=== PATIENT | male | born 1975 | race Caucasian/White ===

== ENCOUNTER 2020-11-02 08:47 | Outpatient (CLI) | payer MEDICARE, SELFPAY ==
--- NOTE | 2020-11-02 08:30 | XR_ITS ---
WS: [id number] XR KUB [id number] REASON FOR EXAM: Nuerogenic bladder FINDINGS: Paravertebral rods upper lumbar spine. Inferior vena cava filter. Multiple small surgical bowel anast omotic darwin in the left lower quadrant. Balloon in right lower pelvis. Large amount of fecal material and gas within the colon. No urinary tract calculi identified. XR/XR KUB [id number] IMPRESSION: No urinary tract calculi identified, exam limited by large amount of fecal jeb rial and gas within the colon.
--- NOTE | 2020-11-02 08:45 | US_ITS ---
WS: [id number] RENAL ULTRASOUND REASON FOR EXAM: Neurogenic bladder TECHNIQUE: Grayscale and Doppler ultrasound examination of the kidneys. FINDINGS: Right kidney: Right kidney measures 12.6 cm x 5.2 cm x 5.9 cm. No mass, hydronephrosis, or calculus. Right kidney is unchanged compared to previous examination of 09/04/2018. Left kidney: Left kidney measures 13.7 cm x 6.0 cm x 5.9 cm. No mass, hydronephrosis, or calculus. [place] ft kidney is unchanged compared to previous examination of 09/04/2018. Within the pelvis both the [place] bladder and the neobladder are identified as fluid-filled structure s. US/US renal BI* [id number] IMPRESSION: No significant renal abnormality, kidneys unchanged compared to previous examin ation. [place] bladder and neobladder identified in the pelvis.
== END 2020-11-02 08:48 | disposition home or self-care (01) ==
LOC: RAD 08:49
PROVIDERS: PCP Nurse Practitioner; Visit Provider Urology
DX: N31.9 Neuromuscular dysfunction of bladder, unspecified (principal)
CPT/HCPCS: 74018; 76770; 80053

== ENCOUNTER 2022-10-25 12:04 | Outpatient (CLI) | payer MEDICARE, SELFPAY ==
--- NOTE | 2022-10-25 12:15 | US_ITS ---
WS: [id number] RENAL ULTRASOUND HISTORY: Neurogenic Bladder COMPARISON: 11/02/2020 TECHNIQUE: 2-D and color Doppler imaging of the kidney submitted. Right kidney: 13.4 cm x 5.1 cm x 5.3 cm. Normal echogenicity with no hydronephrosis or mass. Left kidney: 13.7 cm x 5.6 cm x 4.4 cm. Normal echogenicity with no hydronephrosis or mass. Aorta: Not visualized due to bowel gas. Urinary Bladder: Nondistended urinary bladder. By history this is a neobladder. There is a bladder ca lcification in the dependent portion measuring approximately 1.1 cm. There is very mild diffuse bladd er wall thickening. Prostate gland is slightly enlarged with hypertrophy. US/US renal BI* [id number] IMPRESSION: 1. Normal renal ultrasound. No hydronephrosis. 2. Normally distended urinary bladder with a bladder calcification, maximum me asurement of the calcification is 1.1 cm.
== END 2022-10-25 12:05 | disposition home or self-care (01) ==
LOC: RAD 12:10
PROVIDERS: PCP Nurse Practitioner; Visit Provider Urology
DX: N31.9 Neuromuscular dysfunction of bladder, unspecified (principal)
CPT/HCPCS: 76770

== ENCOUNTER 2022-11-05 11:29 | Outpatient (CLI) | payer MEDICARE, SELFPAY ==
--- NOTE | 2022-11-05 12:19 | XR_ITS ---
WS: [id number] EXAMINATION: XR KUB [id number] REASON FOR EXAM: Neurogenic Bladder history kidney stones COMPARISON: 11/02/2020 ORDER DATE: 11/05/2022 12:29 PM FINDINGS: Paravertebral rods upper lumbar spine. Inferior vena cava filter. Multiple small surgical bowel anastomotic darwin in the left lower quadrant. Smooth rounded balloon-type appearance in right lower pelvis. Unremarkable bowel gas pattern with moderate fecal retention in the right and transverse col on segments. No urinary tract calculi identified. XR/XR KUB [id number] IMPRESSION: No urinary tract calculi identified, moderate constipation.
[2022-11-05 12:50] LABS: Anion Gap 9.7 (5-19); Blood Urea Nitrogen 12 mg/dL (6-20); Calcium 8.9 mg/dL (8.5-10.5); Carbon Dioxide 31 mmol/L (22-29); Chloride 102 mmol/L (98-107); Glomerular Filtration Rate 121.4 mL/min (90-130); Glucose 111 mg/dL (65-115); Osmolality Calculated 288 mOsm/kg (285-295); Potassium 3.7 mmol/L (3.5-5.1); Sodium 139 mmol/L (136-145)
== END 2022-11-05 11:30 | disposition home or self-care (01) ==
LOC: RAD 11:32
PROVIDERS: PCP Nurse Practitioner; Visit Provider Urology
DX: N31.9 Neuromuscular dysfunction of bladder, unspecified (principal); K59.00 Constipation, unspecified; N39.0 Urinary tract infection, site not specified
CPT/HCPCS: 36415; 74018; 80048; 99213

== ENCOUNTER 2024-04-01 12:54 | Outpatient (CLI) | payer MEDICARE, SELFPAY ==
--- NOTE | 2024-04-01 13:02 | XR_ITS ---
WS: [id number] Examination: XR KUB [id number] Reason for Exam: GENITOURINARY COMPLAINTS Date: April 01, 2024 Comparison: November 05, 2022 Findings: There is a large stool burden within the colon. There are are no dilated loops of gaseously distended bowel. Calcifications are projected over the pelvis which are new. These may represent bladder calculi. Previous surgical changes to the thoracolumbar spine are noted. There is an IVC filter in place. Chronic changes of the hips are noted bilaterally. XR/XR KUB [id number] Impression: There is a large stool burden. Findings suggest bladder calculi. CT of the abdomen and pelvis may be helpful f or further delineation.
== END 2024-04-01 12:55 | disposition home or self-care (01) ==
LOC: RAD 12:59
PROVIDERS: PCP Nurse Practitioner; Visit Provider Nurse Practitioner Family
DX: R39.9 Unspecified symptoms and signs involving the genitourinary system (principal)
CPT/HCPCS: 74018